=== PATIENT | female | born 1970 | race Caucasian/White ===

== ENCOUNTER → 2020-05-17 | Day surgery (SDC) | payer BC ==
[~2020-05-17] MED LIST: Ketamine 200 MG/20 ML MDV IV ONE; Lactated Ringers 1,000 ML IV SCH; Propofol 200 MG/20 ML SDV IV ONE; fentaNYL 100 MCG/2 ML SDV IV ONE
--- NOTE | 2020-05-17 15:03 | OR ---
DATE OF OPERATION: 05/17/2020 PREOPERATIVE DIAGNOSIS: 1. FAMILY HISTORY OF COLON CANCER. 2. WEIGHT LOSS. POSTOPERATIVE DIAGNOSIS: 1. FAMILY HISTORY OF COLON CANCER. 2. WEIGHT LOSS. SURGEON: John Schaefer MD PROCEDURE: FULL-LENGTH COLONOSCOPY WITH BIOPSIES X3. ANESTHESIA: MAC. COMPLICATIONS: None. SPECIMEN: Three separate biopsies of mild colitis. FINDINGS: 1. Full-length colonoscopy. 2. No signs of polyps, mass, or tumor. 3. Three small focal areas of colitis. RECOMMENDATIONS: Medical followup pending path report. Routine colonoscopy every 5 years given family history of colon cancer. INDICATIONS: The patient has been having some ongoing issues with weight loss. Her workup thus far is negative. She has a family history of colon cancer in her father and she is due for a 5-year followup scope. Elvira sent her for such. DESCRIPTION OF PROCEDURE: The patient was prepped and draped, placed in the left lateral decubitus position. A lubricated Olympus colonoscope was inserted and with relative ease advanced to the cecum. The patient is quite tortuous, but the scope passed safely and easily. We were able to directly visualize the bowel. The bowel prep was fine. Upon withdrawal, the cecum, ascending colon appeared completely benign. Right at the hepatic flexure, there was 1 small focal area of colitis. This could have been scope-induced. Nevertheless, we did do a biopsy of it. The rest of the transverse colon was benign. Right at the descending colon in the proximal sigmoid colon within about 10 cm there were another 2 small focal areas of erythema in the lining. We ended up biopsying both. Throughout the rest of the colon, I could find no other polyps, mass, ulceration, or bleeding sites. No vascular abnormalities or diverticula. No signs of any worrisome lesions. The rectal vault appeared benign. Retroflexion of the scope in the rectum was benign. Air was then suctioned. The scope was removed without complication. FIDELIA/JAVIER /[id number]
== END ==
LOC: CC.SDS 10:45
PROVIDERS: ATTEND Family Medicine
DX: K63.89 Other specified diseases of intestine (principal); K52.9 Noninfective gastroenteritis and colitis, unspecified; F41.9 Anxiety disorder, unspecified; F32.9 Major depressive disorder, single episode, unspecified; E78.00 Pure hypercholesterolemia, unspecified; D50.9 Iron deficiency anemia, unspecified; R53.83 Other fatigue; R51 Headache; Z80.0 Family history of malignant neoplasm of digestive organs; Z88.1 Allergy status to other antibiotic agents; Z79.899 Other long term (current) drug therapy
CPT/HCPCS: 00812; J2704; J3010; J7120

== ENCOUNTER 2025-06-01 10:32 | Day surgery (SDC) | payer BC ==
[2025-06-01] MEDS: Lactated Ringers 1,000 ML IV SCH (10:54)
[2025-06-01] MEDS ORDERED: Propofol 200 MG/20 ML SDV ONE (11:05)
[2025-06-01] MEDS ORDERED: Flumazenil 0.1 MG/ML 5 ML MDV ONE (11:05)
[2025-06-01] MEDS ORDERED: fentaNYL 50 MCG/ML SDV ONE (11:05)
[2025-06-01] MEDS ORDERED: Midazolam 1 MG/ML 2 ML SDV ONE (11:05)
[2025-06-01] MEDS ORDERED: Ketamine 200 MG/20 ML MDV ONE (11:05)
== END 2025-06-01 12:20 | disposition home or self-care (01) ==
LOC: CC.SDS 10:32
PROVIDERS: ATTEND Family Medicine
DX: Z12.11 Encounter for screening for malignant neoplasm of colon (principal); K63.89 Other specified diseases of intestine; E66.3 Overweight; Z88.1 Allergy status to other antibiotic agents; Z80.0 Family history of malignant neoplasm of digestive organs; Z68.27 Body mass index [BMI] 27.0-27.9, adult; Z79.899 Other long term (current) drug therapy
CPT/HCPCS: 00811; J2250; J2704; J3010; J3490; J7120